=== PATIENT | female | born 1965 | race Caucasian/White ===

== ENCOUNTER 2016-04-02 14:52 | Outpatient (CLI) | payer BC | END 2016-04-02 20:55 | disposition home or self-care (01) | LOC: SCA 14:52 | DX: Z09 Encounter for follow-up examination after completed treatment for conditions other than malignant neoplasm (principal); C50.912 Malignant neoplasm of unspecified site of left female breast; C79.51 Secondary malignant neoplasm of bone; I51.7 Cardiomegaly | CPT/HCPCS: 93306 ==

== ENCOUNTER 2016-07-30 13:57 | Outpatient (CLI) | payer BC | END 2016-07-30 20:53 | disposition home or self-care (01) | LOC: SCA 13:57 | DX: C50.912 Malignant neoplasm of unspecified site of left female breast (principal); C79.51 Secondary malignant neoplasm of bone; I97.2 Postmastectomy lymphedema syndrome; R94.31 Abnormal electrocardiogram [ECG] [EKG] | CPT/HCPCS: 93306 ==

== ENCOUNTER 2016-11-01 13:21 | Outpatient (CLI) | payer BC | END 2016-11-01 20:35 | disposition home or self-care (01) | LOC: SCA 13:21 | DX: C50.912 Malignant neoplasm of unspecified site of left female breast (principal) | CPT/HCPCS: 93306 ==

== ENCOUNTER 2017-01-30 14:14 | Outpatient (CLI) | payer BC | END 2017-01-30 19:03 | disposition home or self-care (01) | LOC: SCA 14:14 | DX: I34.0 Nonrheumatic mitral (valve) insufficiency (principal); C50.919 Malignant neoplasm of unspecified site of unspecified female breast | CPT/HCPCS: 93306 ==

== ENCOUNTER 2017-05-09 14:18 | Outpatient (CLI) | payer BC | END 2017-05-09 20:35 | disposition home or self-care (01) | LOC: SCA 14:18 | DX: C50.919 Malignant neoplasm of unspecified site of unspecified female breast (principal) | CPT/HCPCS: 93306 ==

== ENCOUNTER 2017-09-02 14:17 | Outpatient (CLI) | payer BC | END 2017-09-02 20:47 | disposition home or self-care (01) | LOC: SCA 14:17 | DX: I34.0 Nonrheumatic mitral (valve) insufficiency (principal); C50.912 Malignant neoplasm of unspecified site of left female breast | CPT/HCPCS: 93306 ==

== ENCOUNTER 2018-05-08 14:09 | Outpatient (CLI) | payer BC | END 2018-05-08 21:22 | disposition home or self-care (01) | LOC: SCA 14:09 | DX: C50.912 Malignant neoplasm of unspecified site of left female breast (principal); I27.21 Secondary pulmonary arterial hypertension | CPT/HCPCS: 93306 ==